=== PATIENT | female | born 1970 | race Caucasian/White ===

== ENCOUNTER → 2020-12-09 | Outpatient (CLI) | payer OTHER ==
[~2020-12-09] MED LIST: ACID CONTROL150 MG PO; ALL DAY ALLERGY10 M2 PO; ASPIRIN CHEWABL81 MG PO; ATORVASTATIN CA20 MG PO; BRILINTA90 MG PO; CARAFATE1 GM PO; CARVEDILOL12.5 MG PO; COZAAR50 MG PO; DULERA 200 MCG8.8 GM INH; FLAGYL500 MG PO; FOLIC ACID 1 MG1 MG PO; MELOXICAM15 MG PO; MINIPRESS2 MG PO; MOBIC15 MG PO; NAPROSYN500 MG PO; NORCO 5-325 TA1 EACH PO; OMEPRAZOLE20 MG PO; PREDNISONE20 MG PO; PROTONIX40 M1 PO; REMERON15 MG PO; ROBITUSSIN DM473 ML PO; TAB-A-VITE1 EACH PO; TERCONAZOLE20 GM VG; VENTOLIN HFA 66.7 GM INH; VITAMIN B-1100 M1 PO; VIVITROL380 MG IM; ZANTAC150 MG PO; ZANTAC300 MG PO; ZOFRAN8 MG PO
== END ==
LOC: EXRD 09:31
DX: L29.9 Pruritus, unspecified (principal); M18.0 Bilateral primary osteoarthritis of first carpometacarpal joints
CPT/HCPCS: 73130

== ENCOUNTER → 2021-03-25 | Outpatient (CLI) | payer OTHER | LOC: CATH 09:35 | DX: R55 Syncope and collapse (principal) ==

== ENCOUNTER → 2021-07-20 | Outpatient (CLI) | payer OTHER ==
[2021-07-21 08:13] LABS: C-REACTIVE PROTEIN, QUANT 2 mg/L (0-10)
== END ==
LOC: LAB 09:14
PROVIDERS: Internal Medicine
DX: R53.83 Other fatigue (principal); D89.89 Other specified disorders involving the immune mechanism, not elsewhere classified; I73.00 Raynaud's syndrome without gangrene; R76.8 Other specified abnormal immunological findings in serum; R74.8 Abnormal levels of other serum enzymes
CPT/HCPCS: 36415; 82550; 85652; 86140